=== PATIENT | female | born 1985 | race Two or more races ===

== ENCOUNTER 2024-08-10 10:45 | Outpatient (CLI) | payer MEDICAID ==
[2024-08-10 11:19] LABS: Basophils # (auto) 0 10 ^3/uL (0-0.2); Basophils % (auto) 0.4 % (0.0-2.0); Eosinophils # (auto) 0 10 ^3/uL (0-0.8); Eosinophils % (auto) 0.4 % (0.0-7.0); Hematocrit 37.8 % (36.0-46.0); Hemoglobin 12.7 g/dL (12.2-16.2); Lymphocytes # (auto) 1.2 10 ^3/uL (0.4-5.4); Lymphocytes % (auto) 12.1 % (10.0-50.0); Mean Corpuscular Hemoglobin 29.5 pg (28.0-32.0); Mean Corpuscular Hgb Conc. 33.6 g/dL (32.0-36.0); Mean Corpuscular Volume 87.9 fL (80.0-100.0); Monocytes # (auto) 0.4 10 ^3/uL (0-1.3); Monocytes % (auto) 4.5 % (0.0-12.0); Neutrophils # (auto) 7.9 10 ^3/uL (1.6-8.6); Neutrophils % (auto) 82.6 % (37.0-80.0); Platelet Count (auto) 199 10^3/uL (140-450); White Blood Cell 9.6 10^3/uL (4.4-10.8)
[2024-08-10 11:59] LABS: Barbiturate Scree,Urine Neg (NEGATIVE); Opiate Scree,Urine Neg (NEGATIVE); Phencyclidine Screen, Urine Neg (NEGATIVE)
[2024-08-10 12:00] LABS: Amphetamine Screen, Urine Neg (NEGATIVE); Benzodiazephine Screen, Urine Neg (NEGATIVE); Cannabinoid Screen, Urine Neg (NEGATIVE); Cocaine Screen, Urine Neg (NEGATIVE)
[2024-08-11 14:07] LABS: Chlamydia Trachomatis, NAA Negative (Negative); Neisseria gonorrhoeae, NAA Negative (Negative)
== END 2024-08-10 17:00 | disposition home or self-care (01) ==
LOC: LAB 10:45
PROVIDERS: ATTEND Obstetrics & Gynecology
DX: O23.40 Unspecified infection of urinary tract in pregnancy, unspecified trimester (principal); Z31.430 Encounter of female for testing for genetic disease carrier status for procreative management; Z20.09 Contact with and (suspected) exposure to other intestinal infectious diseases; N39.0 Urinary tract infection, site not specified; Z3A.00 Weeks of gestation of pregnancy not specified
CPT/HCPCS: 36415; 80307; 83036; 84144; 84702; 85025; 86703; 86762; 86780; 86850; 86900; 86901; 87086; 87340

== ENCOUNTER 2024-09-25 09:07 | Outpatient (CLI) | payer MEDICAID ==
[2024-09-25 10:10] LABS: Hematocrit 36.9 % (36.0-46.0); Hemoglobin 12.9 g/dL (12.2-16.2); Mean Corpuscular Hemoglobin 30.4 pg (28.0-32.0); Mean Corpuscular Volume 87.0 fL (80.0-100.0); Nucleated Red Blood Cells % 0.0 %
== END 2024-09-25 17:00 | disposition home or self-care (01) ==
LOC: LAB 09:07
DX: Z34.80 Encounter for supervision of other normal pregnancy, unspecified trimester (principal); Z3A.00 Weeks of gestation of pregnancy not specified
CPT/HCPCS: 36415; 82951; 83036; 85025; 86780; 87086

== ENCOUNTER 2024-11-06 07:02 | Observation (INO) | payer MEDICAID ==
[2024-11-06] MEDS ORDERED: PREN-96 PO (11:00)
--- NOTE | 2024-11-06 11:56 | DVH ---
CLINICAL HISTORY: Gestational diabetes. COMPARISON: None TECHNIQUE: biophysical profile was performed. Transabdominal sonographic images of the fetus we re obtained. FINDINGS: The fetus is in cephalic position. heart rate measures 148 BPM. Amniotic fluid index measures 14.0 cm. The placenta is posterior in position without visualized evidence for previa or abr uption. BPP profile is an overall score of 8/8, with 2/2 points for breathing, with at least one episode of breathing over a 30 second duration during a 30 minute observation, 2/2 points for m ovements, with 3 or more discrete body or limb movements, 2/2 points for tone, with one or more episodes of extremity extension with return to flexion, or opening and closing of hand, and 2/ 2 points for amniotic fluid, with at least 1 pocket of amniotic fluid that measures 2 cm in 2 perpend icular planes. IMPRESSION: BPP score of 8/8.
--- NOTE | 2024-11-06 12:03 | DVHDS2 ---
Physician Discharge Progress N Final Diagnosis: gdm 34 wks Operations or Procedures: Operations or Procedures nst reactive reviwed,sono Condition on Discharge: Good Disposition: Home Discharge Instructions: Diet: Consistent carbohydrate Activity: No Restrictions, As Tolerated Follow Up/Referral: as scheduled Medications: na Follow Up Care: Specialist: 3d Discharge Statement: "Patient was advised to return to the ER or call 911 if any headaches, dizziness, shortness of breath, chest pain, abdominal pain, bleeding, fevers, or worsening of medical condition. Patient was counseled about treatment plan, medications, possible side effects, patientverbalized understanding. All questions were answered to the best of my ability. This discharge took greater then 30 minutes in planning, reviewing documentation, counseling the patient, and discussing with other team members." Visit Coding OBGYN Date of Service: Nov 06, 2024 Billing Provider: MORENA ALFARO DO BARREL BRIDGE ASSEMBLER Common Visit Codes: 08002-[id number] OBS CARE (HIGH) BARREL BRIDGE ASSEMBLER Procedure Codes: 95726-46- NON-STRESS TEST MORENA ALFARO DO Nov 06, 2024 12:03
== END 2024-11-06 11:50 | disposition home or self-care (01) ==
LOC: LDRP 10:51
PROVIDERS: ADMIT Obstetrics & Gynecology; ATTEND Obstetrics & Gynecology
DX: O24.419 Gestational diabetes mellitus in pregnancy, unspecified control (principal); Z3A.34 34 weeks gestation of pregnancy; Z98.890 Other specified postprocedural states; Z79.899 Other long term (current) drug therapy
CPT/HCPCS: 59025; 76819; 81002; 82948; 82962; 94760; G0378

== ENCOUNTER 2024-11-18 07:50 | Observation (INO) | payer MEDICAID ==
[~2024-11-18 07:50] MED LIST: PREN-96 PO
--- NOTE | 2024-11-18 08:41 | DVH ---
BIOPHYSICAL PROFILE HISTORY: GMDA1 TECHNIQUE: Multiple transabdominal real-time grayscale sonographic images through the gravid uterus o f the fetus with duplex doppler color flow and M-mode spectral analysis FINDINGS: BIOPHYSICAL PROFILE: breathing score: 2 movement score: 2 tone score: 2 Quantitative TABITHA score: 2 (TABITHA: 14.1 cm.) Total score: 8/8 Single live fetus in cephalic presentation. heart rate 134 beats per minute. Posterior placenta without previa or abruption Biophysical profile score 8/8 corresponding to an NINA of 12/20/24 IMPRESSION: Biophysical profile score: 8/8
--- NOTE | 2024-11-19 08:24 | DVHDS2 ---
Discharge Summary Date of Admission Nov 18, 2024 at 07:50 Date of Discharge: Nov 18, 2024 Admitting Diagnosis Patient is here for GDM 136-2/7 for monitoring. Wounds: None Labs/Diagnostic Data: NST ultrasound reassuring Brief Hx & Hospital Course: Patient here for NST ultrasound. NST reactive performed ultrasound reassuring Consults/Reason for consult GDM A1 36 week Operations or Procedures NST/ultrasound Condition at Discharge: Good Final Diagnosis/Problems List GDM a 1 reassuring heart reassuring ultrasound Discharge Disposition: Home Discharge Instruct/Medications Diet: Regular Activity: No Restrictions, As Tolerated Activity comment: Kick counts labor precautions Follow Up/Referral: As scheduled less than 7 days Medications: Resume home meds Scheduled Vit W/ Ferrous Fumara ( One Daily), 1 TAB PO DAILY, (Reported) Discharge Statement: "Patient was advised to return to the ER or call 911 if any headaches, diz ziness, shortness of breath, chest pain, abdominal pain, bleeding, fevers, or worsening of medical condition. Patient was counseled about treatment plan, medications, possible side effects, patientverbalized understanding. All questions were answered to the best of my ability. This discharge took greater then 30 minutes in planning, reviewing documentation, counseling the patient, and discussing with other team members." ASSESSMENT ASSESSMENT Assessment Visit Coding OBGYN Date of Service: Nov 18, 2024 Billing Provider: KELLEN WAYNE DO PHYSICIAN NEONATOLOGY Common Visit Codes: 92439-[id number] CARE DISCHARGE, [id number] INP/OBS CARE(HIGH), 20413-CNU/OBS SAME DATE (LOW), 86585-PFR/OBS SAME DATE (MOD) PHYSICIAN NEONATOLOGY Procedure Codes: 25883-37- NON-STRESS TEST KELLEN WAYNE DO Nov 19, 2024 08:24
== END 2024-11-18 08:55 | disposition home or self-care (01) ==
LOC: LDRP 07:50
PROVIDERS: ADMIT Obstetrics & Gynecology; ATTEND Obstetrics & Gynecology
DX: O24.419 Gestational diabetes mellitus in pregnancy, unspecified control (principal); Z3A.36 36 weeks gestation of pregnancy; Z98.890 Other specified postprocedural states
CPT/HCPCS: 59025; 76819; 81002; 82948; G0378

== ENCOUNTER 2024-11-24 10:10 | Outpatient (CLI) | payer MEDICAID ==
[2024-11-24 10:27] LABS: Hematocrit 35.9 % (36.0-46.0); Hemoglobin 12.8 g/dL (12.2-16.2); Mean Corpuscular Hemoglobin 31.4 pg (28.0-32.0); Mean Corpuscular Volume 88.2 fL (80.0-100.0); Nucleated Red Blood Cells % 0.0 %
[2024-11-26 04:06] LABS: Chlamydia Trachomatis, NAA Negative (Negative); Neisseria gonorrhoeae, NAA Negative (Negative)
== END 2024-11-24 17:00 | disposition home or self-care (01) ==
LOC: LAB 10:10
DX: Z34.93 Encounter for supervision of normal pregnancy, unspecified, third trimester (principal); Z3A.37 37 weeks gestation of pregnancy
CPT/HCPCS: 36415; 85025; 86780; 87086

== ENCOUNTER 2024-11-24 10:30 | Observation (INO) | payer MEDICAID ==
--- NOTE | 2024-11-24 11:34 | DVH ---
BIOPHYSICAL PROFILE HISTORY: GDMA1 Comparison Study: US BIOPHYSICAL PROFILE on DOS: 11/18/24, US BIOPHYSICAL PROFILE on DOS: 11/06/24 TECHNIQUE: Multiple real-time grayscale sonographic images through the gravid uterus of the fetus wi th duplex Doppler color flow and M-mode spectral analysis FINDINGS: BIOPHYSICAL PROFILE: breathing score: 2 movement score: 2 tone score: 2 Quantitative TABITHA score: 2 (TABITHA: 16.3 Cm.) Total score: 8 The cervix is not visualized Single live fetus in cephalic presentation. heart rate 153 beats per minute. Fundal placenta without previa or abruption IMPRESSION: Biophysical profile score: 8
--- NOTE | 2024-11-24 17:28 | DVHDS2 ---
Physician Discharge Progress N Final Diagnosis: GDM 37WKS Operations or Procedures: Operations or Procedures NST REACTIVE REVIWED,SONO Condition on Discharge: Good Disposition: Home Discharge Instructions: Diet: Regular Activity: No Restrictions, As Tolerated Medications: NA Follow Up Care: Specialist: 1W Discharge Statement: "Patient was advised to return to the ER or call 911 if any headaches, dizziness, shortness of breath, chest pain, abdominal pain, bleeding, fevers, or worsening of medical condition. Patient was counseled about treatment plan, medications, possible side effects, patientverbalized understanding. All questions were answered to the best of my ability. This discharge took greater then 30 minutes in planning, reviewing documentat ion, counseling the patient, and discussing with other team members." Visit Coding OBGYN Date of Service: Nov 24, 2024 Billing Provider: MORENA ALFARO DO GAS OPERATIONS SUPERINTENDENT Common Visit Codes: [id number] INP/OBS CARE (HIGH) GAS OPERATIONS SUPERINTENDENT Procedure Codes: 89068-61- NON-STRESS TEST MORENA ALFARO DO Nov 24, 2024 17:28
== END 2024-11-24 12:00 | disposition home or self-care (01) ==
LOC: UNDOADMOB 10:30 → LDRP 10:30 → UNDODISOB 12:00
PROVIDERS: ADMIT Obstetrics & Gynecology; ATTEND Obstetrics & Gynecology
DX: O24.419 Gestational diabetes mellitus in pregnancy, unspecified control (principal); Z3A.37 37 weeks gestation of pregnancy; Z98.890 Other specified postprocedural states
CPT/HCPCS: 59025; 76819; 81002; 82948; 94760; G0378

== ENCOUNTER 2024-12-09 01:03 | Inpatient (IN) | payer MEDICAID ==
[~2024-12-09] VITALS: Ht 162.6 cm; Wt 68.0 kg
[2024-12-09] MEDS ORDERED: LIDOCAINE 2%HCL (LOCAL ANESTH.) INJ 20ML MDV IJ PRN (09:00)
[2024-12-09] MEDS ORDERED: PHISODERM TOP SOLN 240ML BTL TOP PRN (09:00)
[2024-12-09] MEDS ORDERED: WITCH HAZEL-GLYCERIN PAD TOP PRN (09:00)
[2024-12-09] MEDS: LACTATED RINGER'S 1,000 ML IV SCH (09:00)
[2024-12-09] MEDS ORDERED: BUTORPHANOL TARTRATE 2 MG/1 ML VIAL IV PRN ×2 (09:00)
[2024-12-09] MEDS ORDERED: DERMOPLAST 60ML BOTTLE TOP PRN (09:00)
--- NOTE | 2024-12-09 09:00 | DVHHP ---
ADMIT DATE: 12/09/2024 CHIEF COMPLAINT: Labor. HISTORY OF PRESENT ILLNESS: The patient is a 39-year-old 4, para 2 with EDC 12/20, estimated gestational age of 38+ weeks, admitted in active labor. The patient was noted to be 6 cm. She has GDM type Class A1, well controlled. Denies having ruptured membrane or vaginal bleeding. PAST MEDICAL HISTORY: None. PAST SURGICAL HISTORY: None. SOCIAL HISTORY: None. FAMILY HISTORY: None. OBSTETRIC AND GYNECOLOGIC HISTORY: Two normal vaginal deliveries. REVIEW OF SYSTEMS: Consistent with HPI. PHYSICAL EXAMINATION: VITAL SIGNS: Stable, afebrile. HEENT: Within normal limits. CARDIOVASCULAR: Regular rate and rhythm. LUNGS: Clear to auscultation. BREASTS: Symmetrical. No masses. ABDOMEN: Gravid. PELVIC: 6 cm, 80%, -1. EXTREMITIES: No clubbing, cyanosis or edema. IMPRESSION: * Intrauterine at 38+ weeks, in active labor. * GDM A1. * AMA. PLAN: Expectant vaginal delivery. Informed consent obtained. DO ISAAC Lemon/MARTHA TID: [id number] RECEIPT: [id number]
[2024-12-09 09:36] LABS: Hematocrit 36.5 % (36.0-46.0); Hemoglobin 12.6 g/dL (12.2-16.2); Mean Corpuscular Hemoglobin 30.9 pg (28.0-32.0); Mean Corpuscular Volume 89.1 fL (80.0-100.0); Nucleated Red Blood Cells % 0.1 %
[2024-12-09 09:56] LABS: Alanine Aminotransferase 19 U/L (7-40); Anion Gap 13 (5-15); BUN/Creatinine Ratio 10.0 (10.0-20.0); Calcium 8.9 mg/dL (8.7-10.4); Chloride 105 mmol/L (98-107); Glucose 81 mg/dL (74-106); Potassium 3.8 mmol/L (3.5-5.1); Sodium 138 mmol/L (136-145); Total Protein 6.4 g/dL (5.7-8.2)
[2024-12-09 09:57] LABS: Albumin 3.9 g/dL (3.2-4.8); Bilirubin, Total 1.1 mg/dL (0.2-1.0)
[2024-12-09] MEDS ORDERED: LACT. RINGERS/OXYTOCIN 20UNITS 500 ML IV ONE ×2 (10:00→10:30)
[2024-12-09 10:19] LABS: Alkaline Phosphatase 129 U/L (46-116); Amphetamine Screen, Urine Neg (NEGATIVE); Barbiturate Scree,Urine Neg (NEGATIVE); Benzodiazephine Screen, Urine Neg (NEGATIVE); Blood Urea Nitrogen 5 mg/dL (9-23); Cannabinoid Screen, Urine Neg (NEGATIVE); Carbon Dioxide 20 mmol/L (20-31); Cocaine Screen, Urine Neg (NEGATIVE); Opiate Scree,Urine Neg (NEGATIVE); Phencyclidine Screen, Urine Neg (NEGATIVE); Urine Protein, UAD Negative (Negative)
[2024-12-09] MEDS ORDERED: ONDANSETRON HCL 4 MG/2 ML VIAL IV PRN (10:30)
[2024-12-09 10:41] LABS: Hepatitis C Antibody Negative (Negative)
[2024-12-09] MEDS ORDERED: NALOXONE HCL 0.4 MG/ML VIAL IV ONE (10:45)
[2024-12-09] MEDS ORDERED: ACCU-CHEK COMFORT CURVE STRIP VI SCH (11:00)
[2024-12-09 11:38] LABS: INR 0.91 (0.9-1.15); Partial Thromboplastin Time 27.0 SEC (24.5-34.5); Prothrombin Time 9.7 sec (9.3-11.8)
[2024-12-09] MEDS ORDERED: TERBUTALINE SULFATE 1 MG/ML 1ML VIAL SC PRN (12:00)
[2024-12-09] MEDS: LIDOCAINE HCL 2 %PF INJ 10ML AMP IJ ONE (12:23)
[2024-12-09] MEDS: ROPIVACAINE HCL 100 ML ONE (12:50)
[2024-12-09] MEDS: LACT. RINGERS/OXYTOCIN 20UNITS 1,000 ML IV SCH (12:51)
--- NOTE | 2024-12-09 15:54 | LDN2 ---
Labor and Delivery Note Date 12/09/24 Age 39 4 Para 3 AB 1 EDC 10-8 EGA 38WKS Diagnosis ACTIVE LABOR,GDM,AMA Vaginal Delivery: VTX Vacuum Assisted: No Placenta: Spontaneous Sex: Male Apgars 8-9 Nuchal Cord Transected: Yes Amniotic Fluid: Clear Anesthesia EPIDURAL Episiotomy: No Extension: Yes (MIDLINE 2ND DGE PERINEAL LAC) Repaired with 2-0 CHROMIC EBL 300ML Labs Laboratory Tests 08/10/24 11:05: Hepatitis B Surface Antigen Negative, HIV (1&2) Antibody Negative, Rubella Antibody Positive Blood Bank 12/09/24 09:09: Blood Type O POSITIVE Complications NONE Conditions STABLE Comments/Significant Med [place] SPEC EXAM NO CXAL LAC Visit Coding OBGYN Date of Service: Dec 09, 2024 Billing Provider: MORENA ALFARO DO SAIL FINISHER MACHINE Common Visit Codes: [id number] OBS CARE (HIGH) SAIL FINISHER MACHINE Procedure Codes: 29633-DWJ DELIVERY ONLY MORENA ALFARO DO Dec 09, 2024 15:54
[2024-12-09] MEDS ORDERED: ACETAMINOPHEN 325 MG TAB PO PRN (16:45)
[2024-12-09 19:30] VITALS: BP 124/75; PULSE 82; RESP 17; TEMP 98.5; O2SAT 96
[2024-12-09] MEDS: DOCUSATE SOD 100 MG CAP PO SCH (22:15)
[2024-12-09 23:35] VITALS: BP 119/74; PULSE 80; RESP 16; TEMP 98.2; O2SAT 97
[2024-12-10 02:45] VITALS: BP 127/77; PULSE 75; RESP 18; TEMP 98.3; O2SAT 100
--- NOTE | 2024-12-10 03:30 | DVHPN2 ---
Progress Note Date Seen: Dec 10, 2024 Subjective S: Lochia minimal Tolerating regular diet well. Ambulating and voiding well w/o feeling lightheaded or dizzy. Passing flatus but no BM yet. Breast feeding. Contraceptive plan: Desires and requests to be discharged home today Lochia minimal Tolerating regular diet well. Ambulating and voiding well w/o feeling lightheaded or dizzy. Passing flatus but no BM yet. Breast feeding. Contraceptive plan: Desires and requests to be discharged home today vital signs Vital Sign Date Time Temp Pulse Resp B/P (MAP) Pulse Ox O2 Delivery O2 Flow Rate FiO2 12/10/24 02:45 98.3 75 18 127/77 (94) 100 98.3 12/09/24 19:00 Room Air Total Intake and Output 12/09/24 12/09/24 12/10/24 15:00 23:00 07:00 Output Total 1400 ml 1200 ml Balance -1400 ml -1200 ml medications Current Medications Medications Dose Ordered Sig/Herb Route Start Time Stop Time Status Last Admin Dose Admin Lactated Ringer's 1,000 ml @ 125 mls/hr Q8H IV 12/09/24 09:00 Diagnostic Test (Pha) 1 strip Q4HR 12/09/24 11:00 Cancel Witch Lauren 1 pad PRN PRN TOP 12/09/24 09:00 Sodium Lauryl Sulfate 240 ml PRN PRN TOP 12/09/24 09:00 Benzocaine 1 applic PRN PRN TOP 12/09/24 09:00 Butorphanol Tartrate 1 mg Q4HPRN PRN IV 12/09/24 09:00 Cancel Butorphanol Tartrate 2 mg Q4HPRN PRN IV 12/09/24 09:00 Cancel Lidocaine HCl 20 ml ONCE PRN IJ 12/09/24 09:00 Cancel Ondansetron HCl 4 mg Q4HPRN PRN IV 12/09/24 10:30 Terbutaline Sulfate 0.25 mg ONCE PRN SC 12/09/24 12:00 Cancel Ibuprofen 600 mg Q6HP PRN PO 12/09/24 16:45 Acetaminophen 650 mg Q4HP PRN PO 12/09/24 16:45 Docusate Sodium 200 mg HS PO 12/09/24 22:00 12/09/24 22:15 200 MG laboratory and microbiology Laboratory Tests 12/09/24 09:09 Test 12/09/24 09:09 Range/Units Serum Glucose 81 74-106 mg/dL Objective A&O x3 NAD. Afebrile, VSS Chest: heart and lung sounds normal. Breasts: Nipples intact w/o cracks or soreness Abdomen: normal BS, soft, non-tender, no rebound or guarding, fundus firm @ U, lochia minimal Perineum:- no edema, or erythema, laceration site with sutures intact, edges in good approximation. Extremities: no edema or tenderness Lochia - minimal Assessment/Plan Ms Burton, minda 39yo now ppd#1 s/p doing well. Blood Type: O Rh: Positive Breast feeding Rubella Immune Pain control with oral medications Bowel regimen: Increase fluid intake and fiber in diet, Laxative PRN PP BCM Plan: Contemplating IUD Discharge plan: May discharge home later today if condition remains stable Plan discussed with: Patient Visit Coding OBGYN Date of Service: Dec 10, 2024 Billing Provider: VANESSA LEYVA CNM [place]ACIER GUIDE Common Visit Codes: [id number] INP/OBS CARE(HIGH) VANESSA LEYVA CNM Dec 10, 2024 03:30
--- NOTE | 2024-12-10 03:33 | DVHDS2 ---
Discharge Summary Date of Admission Dec 09, 2024 at 08:47 Date of Discharge: Dec 10, 2024 Admitting Diagnosis <> IUP at 38w 3d <> AMA <> Labor Labs/Diagnostic Data: Laboratory Results Test 12/09/24 13:52 12/09/24 09:09 POC Glucose 79 mg/dl (70-106) White Blood Count 8.1 10^3/uL (4.4-10.8) Red Blood Count 4.10 10^6/uL (4.0-5.20) Hemoglobin 12.6 g/dL (12.2-16.2) Hematocrit 36.5 % (36.0-46.0) Mean Corpuscular Volume 89.1 fL (80.0-100.0) Mean Corpuscular Hemoglobin 30.9 pg (28.0-32.0) Mean Corpuscular Hemoglobin Concent 34.6 g/dL (32.0-36.0) Red Cell Distribution Width 14.7 % (11.8-14.3) Platelet Count 166 10^3/uL (140-450) Mean Platelet Volume 7.9 fL (6.9-10.8) Neutrophils (%) (Auto) 78.0 % (37.0-80.0) Lymphocytes (%) (Auto) 15.2 % (10.0-50.0) Monocytes (%) (Auto) 5.8 % (0.0-12.0) Eosinophils (%) (Auto) 0.6 % (0.0-7.0) Basophils (%) (Auto) 0.4 % (0.0-2.0) Neutrophils # (Auto) 6.3 10 ^3/uL (1.6-8.6) Lymphocytes # (Auto) 1.2 10 ^3/uL (0.4-5.4) Monocytes # (Auto) 0.5 10 ^3/uL (0-1.3) Eosinophils # (Auto) 0.1 10 ^3/uL (0-0.8) Basophils # (Auto) 0 10 ^3/uL (0-0.2) Nucleated Red Blood Cells 0.1 % Prothrombin Time 9.7 sec (9.3-11.8) Prothrombin Time INR 0.91 (0.9-1.15) Activated Partial Thromboplast Time 27.0 SEC (24.5-34.5) Urine Color Light-yellow (Yellow) Urine Clarity Turbid (Clear) Urine pH 7.0 (5.0-9.0) Urine Specific [place] 1.011 (1.001-1.035) Urine Protein Negative (Negative) Urine Ketones 1+ (Negative) Urine Blood 2+ /uL (Negative) Urine Nitrite Negative (Negative) Urine Bilirubin Negative (Negative) Urine Urobilinogen Normal mg/dL (Negative) Urine Leukocyte Esterase 1+ /uL (Negative) Urine RBC 1 /hpf (0 - 4) Urine Microscopic WBC 7 /HPF (0-5) Urine Squamous Epithelial Cells Mod /hpf (<5) Urine Bacteria Mod /hpf (None Seen) Urine Glucose Normal mg/dL (Normal) Sodium Level 138 mmol/L (136-145) Potassium Level 3.8 mmol/L (3.5-5.1) Chloride Level 105 mmol/L (98-107) Carbon Dioxide Level 20 mmol/L (20-31) Anion Gap 13 (5-15) Blood Urea Nitrogen 5 mg/dL (9-23) Creatinine 0.50 mg/dL (0.550-1.02) Glomerular Filtration Rate Calc 123 mL/min (>90) BUN/Creatinine Ratio 10.0 (10.0-20.0) Serum Glucose 81 mg/dL (74-106) Calcium Level 8.9 mg/dL (8.7-10.4) Total Bilirubin 1.1 mg/dL (0.2-1.0) Aspartate Amino Transferase (AST) 17 U/L (13-40) Alanine Aminotransferase (ALT) 19 U/L (7-40) Alkaline Phosphatase 129 U/L (46-116) Total Protein 6.4 g/dL (5.7-8.2) Albumin 3.9 g/dL (3.2-4.8) Urine Opiates Screen Neg (NEGATIVE) Urine Fentanyl Screen Neg (NEGATIVE) Urine Barbiturates Screen Neg (NEGATIVE) Urine Phencyclidine Screen Neg (NEGATIVE) Urine Amphetamines Screen Neg (NEGATIVE) Urine Benzodiazepines Screen Neg (NEGATIVE) Urine Cocaine Screen Neg (NEGATIVE) Urine Cannabinoids Screen Neg (NEGATIVE) Treponema pallidum Antibody Non-reactive (Negative) Hepatitis C Antibody Negative (Negative) Other Laboratory Tests 12/09/24 09:09 Brief Hx & Hospital Course: Ms Burton was admitted on 12/09/2024 at 38w 3d EGA for labor. She had an uneventful labor. She progressed to 2nd stage of labor and had a over an intact perineum. (See Delivery Note for details) Normal course; meeting milestones w/o any problem or complications. Operations or Procedures Condition at Discharge: Stable Final Diagnosis/Problems List SAME Term - Delivered Discharge Disposition: Home Discharge Instruct/Medications Diet: Regular Diet comment: Routine regular diet rich in fiber, protein, iron and vitamin C with adequate fluid intake. Activity: No Restrictions, As Tolerated Activity comment: Unrestricted. Advance as tolerated. Balance activities with rest periods No heavy lifting, pushing or straining. Pelvic rest x 6weeks Follow Up/Referral: Follow up with OB Provider in 1-2weeks Medications: Ibuprofen, Vitamin Scheduled Vit W/ Ferrous Fumara ( One Daily), 1 TAB PO DAILY, (Reported) Discharge Statement: self care instructions given. emergency signs and symptoms including but not limited to pre-eclampsia precautions and signs of infection, PPH & of PPD reviewed with patient. "Patient was advised to return to the ER or call 911 if any headaches, dizziness, shortness of breath, chest pain, abdominal pain, bleeding, fevers, or worsening of medical condition. Patient was counseled about treatment plan, medications, possible side effects, patientverbalized understanding. All questions were answered to the best of my ability. This discharge took greater then 30 minutes in planning, reviewing documentation, counseling the patient, and discussing with other team members." ASSESSMENT ASSESSMENT Hospital Course Ms Burton was admitted on 12/09/2024 at 38w 3d EGA for labor. She had an uneventful labor. She progressed to 2nd stage of labor and had a over an intact perineum. (See Delivery Note for details) Normal course; meeting milestones w/o any problem or complications. Assessment SAME. Term - Delivered Visit Coding OBGYN Date of Service: Dec 10, 2024 Billing Provider: VANESSA LEYVA CNM GAUGE CONTROLLER Common Visit Codes: 69133-GXK/OBS DISCH DAY <30MIN VANESSA LEYVA CNM Dec 10, 2024 03:33
[2024-12-10 07:30] VITALS: BP 140/74; PULSE 89; RESP 16; TEMP 98.7; O2SAT 97
[2024-12-10] MEDS: IBUPROFEN 600 MG TAB PO PRN (08:00)
[2024-12-10 11:19] VITALS: BP 122/78; PULSE 74; RESP 16; TEMP 98.1; O2SAT 97
[2024-12-10] MEDS ORDERED: IBUP-1454 PO (15:37)
== END 2024-12-10 16:09 | disposition home or self-care (01) | DRG 560 ==
LOC: LDRP 08:08 → OBSVTOIN 08:47 → LDRP 08:48
PROVIDERS: ADMIT Obstetrics & Gynecology; ATTEND Obstetrics & Gynecology
PROC: 10E0XZZ Delivery of Products of Conception, External Approach (ICD-10-PCS; principal; 2024-12-09)
PROC: 0KQM0ZZ Repair Perineum Muscle, Open Approach (ICD-10-PCS; 2024-12-09)
PROC: 3E0R3BZ Introduction of Anesthetic Agent into Spinal Canal, Percutaneous Approach (ICD-10-PCS; 2024-12-09)
PROC: 00HU33Z Insertion of Infusion Device into Spinal Canal, Percutaneous Approach (ICD-10-PCS; 2024-12-09)
DX: O69.81X0 Labor and delivery complicated by cord around neck, without compression, not applicable or unspecified (principal); Z37.0 Single live birth; O24.429 Gestational diabetes mellitus in childbirth, unspecified control; O09.523 Supervision of elderly multigravida, third trimester; Z3A.38 38 weeks gestation of pregnancy; O70.1 Second degree perineal laceration during delivery
CPT/HCPCS: 36415; 59025; 59409; 62282; 80053; 80307; 81001; 81002; 82962; 85025; 85610; 85730; 86780; 86803; 86850; 86900; 86901; 87426; 94760; 94762; 96360; 96361; 96365; G0378; J2590

== ENCOUNTER 2025-02-01 08:07 | Outpatient (CLI) | payer MEDICAID ==
[~2025-02-01 08:07] MED LIST changes: +IBUP-1454 PO
== END 2025-02-01 17:00 | disposition home or self-care (01) ==
LOC: LAB 08:07
DX: Z39.2 Encounter for routine postpartum follow-up (principal); Z86.32 Personal history of gestational diabetes
CPT/HCPCS: 36415; 83036